=== PATIENT | male | born 1935 | race Caucasian/White ===

== ENCOUNTER → 2016-08-17 | Outpatient (CLI) | payer MEDICARE ==
[2015-08-05 06:36] VITALS: BP 139/78
[~2016-08-17] MED LIST: ABIR250T PO; ACET325T9 PO; CONTRAST GIVEN MC PRN; DIPH25CA58 PO; IOHEXOL 240 MG/ML 50ML VIAL. PO ONE; METO100T2 PO; PARO10TA3 PO; PRED5TAB PO
--- NOTE | 2016-08-17 11:45 | RAD ---
EXAM: CT OF THE CHEST, ABDOMEN AND PELVIS WITHOUT INTRAVENOUS CONTRAST. HISTORY: Prostate cancer undergoing restaging. TECHNIQUE: Computed tomography of the chest, abdomen and pelvis was performed without intravenous contrast. COMPARISON: 12/09/2015. FINDINGS: Bone windows reveal interval progression of osseous metastatic disease. The L3 vertebral body is now mostly involved with a mild inferior endplate compression deformity. Some of the previously very sclerotic lesions are now less sclerotic. A few new small lesions are scattered within the spine and ribs. There are no pathologically enlarged mediastinal or axillary lymph nodes. Calcified mediastinal lymph nodes are likely secondary to old granulomatous disease. There is no pleural or pericardial effusion. The heart is not enlarged. There are atherosclerotic calcifications of the coronary arteries. There is a moderate to large hiatal hernia. A nodule medially in the lingula adjacent to the left heart border on image 30 measures 6 mm and is mildly increased from 5 mm previously. An intrafissural lymph node in the left base is unchanged. There is atelectasis in the right base. Multiple calcified granulomas are noted on the right. The liver, kidneys, adrenal glands, gallbladder and pancreas are unremarkable without contrast. There are calcified granulomas in the spleen. The prostate is small or surgically absent. Clips or radiotherapy seeds are noted. There is diffuse bladder wall thickening. A small bladder diverticulum posteriorly on the right measures 11 mm. There are no pathologically enlarged lymph nodes. Sigmoid diverticulosis is moderate to severe. There is no obstruction. IMPRESSION: 1. Interval progression of osseous metastatic disease. A mostly new lesion at L3 is associated with a mild inferior plate compression deformity. 2. 1 6 mm nodule in the lingula has increased in size slightly. Attention on further follow-up. 3. Moderate to large hiatal hernia. 4.. Diffuse bladder wall thickening indicates chronic outlet obstruction or inflammation. Correlate with urinalysis. *One or more of the following individualized dose reduction techniques were utilized for this examination: 1. Automated exposure control. 2. Adjustment of the mA and/or kV according to patient size. 3. Use of iterative reconstruction technique.
--- NOTE | 2016-08-17 13:49 | RAD ---
EXAM: Bone scintigraphy. HISTORY: Prostate cancer. TECHNIQUE: Following the intravenous injection of 25.0 mCi of Tc-99m labeled methylene diphosphonate (MDP), delayed images of the whole body were performed in anterior and posterior projections. Comparison is made with the prior study of 12/09/[address] FINDINGS: Foci of intense uptake are seen within the mid thoracic spine, L3, the sternum, both scapulas, scattered bilateral ribs and the body of the mandible. These have increased somewhat since 12/09/2015. Additional smaller lesions have also progressed as seen on CT. Additional foci along the superior alveolar ridge in the nasopharynx may be post inflammatory. Uptake at the left ankle and right greater than left knees is likely degenerative. Degenerative uptake secondary to left cervical facet osteoarthritis is also suspected. IMPRESSION: 1. Osseous metastatic disease within the spine, ribs, scapulas, and possibly the mandible have progressed slightly since 12/09/2015. Refer to today's CT for more information. 2. Degenerative uptake as above.
== END | disposition home or self-care (01) ==
LOC: NM 09:10
PROVIDERS: ATTEND Internal Medicine Hematology & Oncology
DX: C61 Malignant neoplasm of prostate (principal); I10 Essential (primary) hypertension; Z87.891 Personal history of nicotine dependence
CPT/HCPCS: 71250; 74176; 78306; 96374; A9503; Q9966

== ENCOUNTER 2017-01-19 20:43 | Emergency (ER) | payer MEDICARE ==
[~2017-01-19] VITALS: Ht 160 cm; Wt 68.0 kg
[~2017-01-19 20:43] MED LIST changes: -CONTRAST GIVEN MC PRN; -IOHEXOL 240 MG/ML 50ML VIAL. PO ONE
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
[2017-01-19] MEDS ORDERED: HYDROcodone/APAP 7.5/325MG 1 TAB TABLET PO ONE (21:30)
[2017-01-19 22:02] VITALS: BP 151/75
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
== END 2017-01-19 22:09 | disposition home or self-care (01) ==
LOC: ER 20:43
DX: S39.012A Strain of muscle, fascia and tendon of lower back, initial encounter (principal); I10 Essential (primary) hypertension; Z88.8 Allergy status to other drugs, medicaments and biological substances; V89.2XXA Person injured in unspecified motor-vehicle accident, traffic, initial encounter; Y93.89 Activity, other specified; Y99.8 Other external cause status; Y92.410 Unspecified street and highway as the place of occurrence of the external cause
CPT/HCPCS: 72100; 99284